=== PATIENT | female | born 1945 | race Caucasian/White ===

== ENCOUNTER 2020-07-16 12:56 | Emergency (ER) | payer MEDICARE, OTHER, SELFPAY ==
--- NOTE | ~2020-07-16 | CT_ITS ---
EXAMINATION: CT HEAD WITHOUT CONTRAST CLINICAL INFORMATION: Headache COMPARISON: None TECHNIQUE: Contiguous axial imaging was performed from the skull base to vertex without intravenous administration of contrast. This CT examination was performed using dose optimization techniques as appropriate, variously including the following: *Automated exposure control *Adjustment of mA and/or kV according to patient size (this includes techniques or standardized protocols for targeted exams where dose is matched to indication/reason for exam; i.e. extremities or head) *Use of iterative reconstruction technique DLP: 615 mGy-cm FINDINGS: There is no evidence of acute intracranial hemorrhage or territorial infarction. No abnormal mass effect or midline shift is seen. Jo to white matter differentiation is well preserved. No extra-axial fluid collections are identified. The ventricles are normal in size. There is no abnormal attenuation within the brain parenchyma. The osseous structures and soft tissues are normal. The mastoid air cells and visualized portions of the paranasal sinuses are well aerated. CT/CT head/brain wo con IMPRESSION: No acute intracranial pathology.
[2020-07-16 13:11] VITALS: BP 212/120; PULSE 72; RESP 18; TEMP 37.1; O2SAT 97; BMI 26.6
--- NOTE | 2020-07-16 13:59 | ECG_ITS ---
Test Reason : HYPERTENSION Blood Pressure : / mmHG Vent. Rate : 069 BPM Atrial Rate : 069 BPM P-R Int : 176 ms QRS Dur : 080 ms QT Int : 382 ms P-R-T Axes : 046 023 057 degrees QTc Int : 409 ms Sinus rhythm with Premature atrial complexes Otherwise normal ECG No previous ECGs available Referred By: Arin Arias Electronically Signed By:ANETA VILLATORO
--- NOTE | 2020-07-16 14:00 | ED.GENADULT ---
HPI - General Adult General Chief complaint: General Medical Stated complaint: HIGH BLOOD PRESSURE Time Seen by Provider: 07/16/20 13:58 Source: patient Mode of arrival: ambulatory Limitations: no limitations History of Present Illness HPI narrative: 75 y/o female with history of depression, hyperlipidemia, DM2 & HTN presenting to the ER with poorly controlled blood pressure. She reports her BP for the last 10 days at home has been ranging 170-200/70-100's. She saw her provider on 07/11 and she was changed from Clonidine (unknown dose) to diltiazem 120 ER in addition to her Losartan 100 mg daily and Metoprolol 25 mg daily. On 07/14 her blood pressure improved to 140/70's however it went back up to 200/100 today. She reports a mild intermittent headache. She denies chest pain, vision changes, dizziness. She has a strong family history of brain aneurysms so she came to the ER for evaluation. She reports compliance with all of her medications and presents today with a listing of meds and BP & HR readings. MD complaint: high blood pressure Onset (ago): week(s) (2) Location: head Radiation: non-radiation Severity: mild Quality: aching Pain Consistency: intermittent Relieving factors: none Exacerbating factors: none Associated symptoms: headaches Treatments prior to arrival: none Related Data Previous Rx's Medication Instructions Recorded amlodipine 10 mg PO DAILY #14 tab 07/16/20 Allergies Allergy/AdvReac Type Severity Reaction Status Date / Time ampicillin Allergy Unknown Verified 07/16/20 13:26 lisinopril Allergy Rash Verified 07/16/20 13:26 Review of Systems Review of Systems: Constitutional: No Fever, No Chills ENT/Mouth: No sore throat, No Rhinorrhea, No Swallowing Difficulty Eyes: No Eye Pain, No Swelling, No Redness Cardiovascular: No Chest Pain, No SOB, No Orthopnea, No Edema Respiratory: No Cough, No Sputum, No Wheezing, No dyspnea Gastrointestinal: No Nausea, No Vomiting, No Diarrhea, No abdominal Pain, No Hematochezia, No Melena Genitourinary: No Dysuria, No Urinary Frequency, No Hematuria Musculoskeletal: No joint pain, No Myalgias Skin: No Skin Lesions, No rash Neuro: No Weakness, No Numbness, No Dizziness, + Headache Psych: No Anxiety/Panic, No Depression Heme/Lymph: No Bruising, No Lymphadenopathy Endocrine: No Polyuria, No Polydipsia [facility] Past Medical History Medical History (Updated 07/16/20 @ 15:59 by AMA Dozier) Diabetes High cholesterol HTN (hypertension) Shingles Social History Social History Alcohol intake: never Smoking Status: Never smoker Use of substances other than those prescribed or required for medical reasons: No Advance Directives: No Advance Directives Information Provided: No Physical Exam Vital Signs: Vital Signs: Last Vital Signs Temp 98.7 F 07/16/20 13:11 Pulse 64 07/16/20 16:18 Resp 20 07/16/20 16:18 BP 174/70 H 07/16/20 16:18 Pulse Ox 97 07/16/20 16:18 Body Mass Index 26.6 Appearance: Alert. Oriented X3. No acute distress. Eyes: Pupils equal, round and reactive to light. ENT: Pharynx normal. Neck: Normal inspection. Neck supple. CVS: Normal heart rate and rhythm. Pulses normal. Respiratory: No respiratory distress. Breath sounds normal. Abdomen: Soft and nontender. +BS x4 Skin: Skin warm and dry. Normal skin color. Normal skin turgor. No rashes. Extremities: No lower extremity edema. Neuro: Oriented X 3. No motor deficit. No sensory deficit. Steady gait Course Course Course Narrative: 75 y/o female presenting with poorly controlled BP despite medication changes by her doctor. She has mild headache with BP 200/100 on arrival. Doubt ICH but will get CT head to r/o. Will get EKG and metabolic workup. She appears well and asymptomatic from her severely elevated BP. Reevaluation(s) Reevaluation #1: Lab workup is unremarkable. Her BP improved 180's/70's after dose of amlodipine 5mg. Reevaluation #2: BP 170/70's. She has been counseled on the importance of following up with her provider tomorrow. Will plan to STOP her diltiazem and start amlodipine 10 mg daily. She was on this in the past and tolerated it well. Medical Decision Making Lab Data Result diagrams: 07/16/20 14:29 07/16/20 14:29 Labs: Lab Results 07/16/20 07/16/20 07/16/20 Range/Units 14:29 14:29 14:29 WBC 5.4 (4.8-10.8) X10*3/uL RBC 4.54 (4.20-5.50) X10*6/uL Hgb 11.7 L (12.0-16.0) g/dl Hct 36.2 L (37-47) % MCV 79.7 L (80-98) fL MCH 25.8 L (27.0-33.0) pg MCHC 32.3 (31.0-35.0) g/dl RDW 15.0 (11.0-16.0) % Plt Count 214 (160-400) X10*3/uL MPV 10.1 (9.4-12.3) fL Immature Gran % (Auto) 0.4 (0.0-0.4) % Neut % (Auto) 71.7 (45-73) % Lymph % (Auto) 18.1 L (20-40) % [place] % (Auto) 9.4 (2-11) % Eos % (Auto) 0.0 (0-4) % Baso % (Auto) 0.4 (0-2) % Lymph # (Auto) 1.0 L (1.2-4.9) X10*3/uL [place] # (Auto) 0.5 (0.1-1.2) X10*3/uL Eos # (Auto) 0.0 (0.0-0.4) X10*3/uL Baso # (Auto) 0.0 (0.0-0.2) X10*3/uL Abs Immat Gran (auto) 0.02 (0.00-0.03) X10*3/uL Absolute Neuts (auto) 3.9 (2.0-8.3) X10*3/uL Absolute Nucleated RBC 0.000 (0.0-0.012) X10*3/uL Nucleated RBC % (auto) 0.0 (0.0-0.2) /100WBC Hold Blue Top SEE NOTE Sodium 135 (135-145) mmol/L Potassium 3.9 (3.3-5.1) mmol/L Chloride 99 (96-108) mmol/L Carbon Dioxide 24 (22-29) mmol/L Anion Gap 16 (12-20) BUN 12 (9-16) mg/dL Creatinine 0.96 (0.5-1.4) mg/dL Estim Creat Clear Calc 45.8 Estimated GFR 57 Random Glucose 218 H (60-115) mg/dL Calcium 9.4 (8.4-10.2) mg/dL Magnesium 1.8 (1.6-2.6) mg/dL Total Bilirubin 0.4 (0.0-1.0) mg/dL Direct Bilirubin 0.3 (0.0-0.5) mg/dL AST 12 (5-31) U/L ALT 10 (0-31) U/L Alkaline Phosphatase 87 (39-117) U/L Troponin I High Sens (<3.5-17.0) ng/L Total Protein 7.3 (6.5-8.0) g/dL Albumin 4.3 (3.5-5.0) g/dL Urine Color Urine Appearance Urine pH (5.0-8.0) Ur Specific [place] (1.005-1.025) Urine Protein (NEG-TRACE) MG/DL Urine Glucose (UA) (NEG) MG/DL Urine Ketones (NEG) MG/DL Urine Blood (NEG) Urine Nitrite (NEG) Ur Leukocyte Esterase (NEG) Urine RBC (0) /HPF Urine WBC (0-4) /HPF Ur Squamous Epith Cells /LPF Urine Bacteria /LPF 07/16/20 07/16/20 Range/Units 14:29 15:13 WBC (4.8-10.8) X10*3/uL RBC (4.20-5.50) X10*6/uL Hgb (12.0-16.0) g/dl Hct (37-47) % MCV (80-98) fL MCH (27.0-33.0) pg MCHC (31.0-35.0) g/dl RDW (11.0-16.0) % Plt Count (160-400) X10*3/uL MPV (9.4-12.3) fL Immature Gran % (Auto) (0.0-0.4) % Neut % (Auto) (45-73) % Lymph % (Auto) (20-40) % [place] % (Auto) (2-11) % Eos % (Auto) (0-4) % Baso % (Auto) (0-2) % Lymph # (Auto) (1.2-4.9) X10*3/uL [place] # (Auto) (0.1-1.2) X10*3/uL Eos # (Auto) (0.0-0.4) X10*3/uL Baso # (Auto) (0.0-0.2) X10*3/uL Abs Immat Gran (auto) (0.00-0.03) X10*3/uL Absolute Neuts (auto) (2.0-8.3) X10*3/uL Absolute Nucleated RBC (0.0-0.012) X10*3/uL Nucleated RBC % (auto) (0.0-0.2) /100WBC Hold Blue Top Sodium (135-145) mmol/L Potassium (3.3-5.1) mmol/L Chloride (96-108) mmol/L Carbon Dioxide (22-29) mmol/L Anion Gap (12-20) BUN (9-16) mg/dL Creatinine (0.5-1.4) mg/dL Estim Creat Clear Calc Estimated GFR Random Glucose (60-115) mg/dL Calcium (8.4-10.2) mg/dL Magnesium (1.6-2.6) mg/dL Total Bilirubin (0.0-1.0) mg/dL Direct Bilirubin (0.0-0.5) mg/dL AST (5-31) U/L ALT (0-31) U/L Alkaline Phosphatase (39-117) U/L Troponin I High Sens 5.4 (<3.5-17.0) ng/L Total Protein (6.5-8.0) g/dL Albumin (3.5-5.0) g/dL Urine Color YELLOW Urine Appearance CLEAR Urine pH 7.0 (5.0-8.0) Ur Specific [place] 1.015 (1.005-1.025) Urine Protein NEG (NEG-TRACE) MG/DL Urine Glucose (UA) 100 H (NEG) MG/DL Urine Ketones NEG (NEG) MG/DL Urine Blood NEG (NEG) Urine Nitrite NEG (NEG) Ur Leukocyte Esterase TRACE H (NEG) Urine RBC 0-2 (0) /HPF Urine WBC 5-9 H (0-4) /HPF Ur Squamous Epith Cells 1+ /LPF Urine Bacteria 2+ /LPF ECG Data Attestation: I personally reviewed and interpreted this ECG as follows: Interpretation: normal sinus rhythm, HR 69 bpm, normal MD interval, noraml QTc, no ST segment elevations, artifact present. Discharge Plan Discharge Clinical Impression: Poorly-controlled hypertension Patient Disposition: Home, Self-Care Instructions: Low-Sodium Diet (ED), Hypertensive Crisis (ED), Hypertension and Diabetes (ED) Additional Instructions: Your workup in the ER today was unremarkable. Recommend following up with your doctor tomorrow for further management of your blood pressure medications. Recommend STOP taking diltiazem medication. This medication can lower your heart rate, and yours has been borderline low according to your records. Recommend START taking amlodipine 10 mg daily. You were given this in the ER with improvement in your blood pressure. Two weeks worth has been sent to your pharmacy. Recommend monitoring your blood pressure 2 hours after taking your medications. If you develop chest pain, severe headache, vision changes or any other concerning symptom come back to the ER for further evaluation. Prescriptions: New amlodipine 10 mg tablet 10 mg PO DAILY Qty: 14 RF: 0
[2020-07-16 14:34] LABS: MANUAL DIFF FLAG NO
[2020-07-16 14:35] LABS: Basophils Percent Auto 0.4 % (0-2); Hematocrit 36.2 % (37-47); Hemoglobin 11.7 g/dl (12.0-16.0); Imm Gran Abs Auto 0.02 X10*3/uL (0.00-0.03); Imm Gran Pct Auto 0.4 % (0.0-0.4); Lymphocytes Percent Auto 18.1 % (20-40); Mean Corpuscular HGB Conc 32.3 g/dl (31.0-35.0); Mean Corpuscular Hemoglobin 25.8 pg (27.0-33.0); Mean Corpuscular Volume 79.7 fL (80-98); Mean Platelet Volume 10.1 fL (9.4-12.3); Monocytes Absolute Auto 0.5 X10*3/uL (0.1-1.2); Monocytes Percent Auto 9.4 % (2-11); Neutrophils Absolute Auto 3.9 X10*3/uL (2.0-8.3); Neutrophils Percent Auto 71.7 % (45-73); Platelet Count 214 X10*3/uL (160-400); Red Blood Count 4.54 X10*6/uL (4.20-5.50); White Blood Count 5.4 X10*3/uL (4.8-10.8)
[2020-07-16 14:51] VITALS: BP 192/77; PULSE 70
[2020-07-16] MEDS: amLODIPine Besylate 5 MG TABLET PO (14:51)
[2020-07-16 14:54] LABS: Alanine Aminotransferase 10 U/L (0-31); Albumin Level 4.3 g/dL (3.5-5.0); Alkaline Phosphatase 87 U/L (39-117); Anion Gap 16 (12-20); Aspartate Amino Transferase 12 U/L (5-31); Bilirubin Direct 0.3 mg/dL (0.0-0.5); Bilirubin Total 0.4 mg/dL (0.0-1.0); Blood Urea Nitrogen 12 mg/dL (9-16); Calcium 9.4 mg/dL (8.4-10.2); Carbon Dioxide 24 mmol/L (22-29); Chloride 99 mmol/L (96-108); Creatinine Clr Calc Pharmacy 45.8; Estimated Glomerular Filt Rate 57; Glucose Random 218 mg/dL (60-115); Magnesium 1.8 mg/dL (1.6-2.6); Potassium 3.9 mmol/L (3.3-5.1); Sodium 135 mmol/L (135-145); Total Protein 7.3 g/dL (6.5-8.0)
[2020-07-16 15:00] LABS: Troponin-I High Sensitivity 5.4 ng/L (<3.5-17.0)
[2020-07-16 15:11] VITALS: BP 199/72; PULSE 63; RESP 17; O2SAT 96
[2020-07-16 15:23] LABS: Glucose Urine UA 100 MG/DL (NEG); Leukocyte Esterase Urine TRACE (NEG); Nitrite Urine NEG (NEG); Specific Gravity - Urine 1.015 (1.005-1.025); UACC Culture Trigger YES; Urine Blood NEG (NEG); Urine Ketones NEG (NEG); Urine Protein NEG (NEG-TRACE)
[2020-07-16 15:28] LABS: Appearance Urine CLEAR; Color Urine YELLOW
[2020-07-16] MEDS: Acetaminophen 325 MG TABLET 975 MG PO (15:35)
[2020-07-16 15:37] VITALS: BP 186/71; PULSE 64
[2020-07-16 15:37] LABS: Bacteria Urine 2+ /LPF; RBC Urine 0-2 /HPF (0); Squamous Epithelial Cell Urine 1+ /LPF
[2020-07-16 16:18] VITALS: BP 174/70; PULSE 64; RESP 20; O2SAT 97
[2020-07-16 16:25] VITALS: BP 172/72
== END 2020-07-16 16:54 | disposition home or self-care (01) ==
PROVIDERS: Physician Assistant; Emergency Provider Emergency Medicine; PCP Family Medicine
DX: I10 Essential (primary) hypertension (principal); E11.9 Type 2 diabetes mellitus without complications
CPT/HCPCS: 36415; 70450; 80048; 80076; 81001; 81003; 83735; 84484; 85025; 87086; 87088; 87186; 93005; 99284

== ENCOUNTER 2022-01-12 11:01 | Emergency (ER) | payer MEDICARE, OTHER, SELFPAY ==
--- NOTE | ~2022-01-12 | CT_ITS ---
EXAMINATION: CT FACIAL BONES WITHOUT CONTRAST CLINICAL INFORMATION: Fall, head injury COMPARISON: None TECHNIQUE: Axial Imaging with coronal and sagittal reformatted images This CT examination was performed using dose optimization techniques as appropriate, variously including the following: *Automated exposure control *Adjustment of mA and/or kV according to patient size (this includes techniques or standardized protocols for targeted exams where dose is matched to indication/reason for exam; i.e. extremities or head) *Use of iterative reconstruction technique DLP: 260 mGy-cm FINDINGS: No fracture is seen. CT/CT facial bones wo IV con IMPRESSION: No facial fracture is seen.
--- NOTE | ~2022-01-12 | XR_ITS ---
EXAMINATION: XR FACIAL BONES CLINICAL INFORMATION: Pain EXAMINATION: Facial bones. 5 views are submitted. There is no air-fluid level seen here. The visualized sinuses are grossly clear. No convincing evidence of significant sinus disease. There is no evidence for fracture on the imaging submitted. XR/XR facial bones min 3V IMPRESSION: No fracture is seen here. Sinuses are felt to be grossly clear.
--- NOTE | ~2022-01-12 | CT_ITS ---
Indication: Fall injury EXAMINATION: Cervical spine and brain. Axial imaging with coronal and sagittal reformatted images. Comparison previous dated 07/16/2021. This CT examination was performed using dose optimization techniques as appropriate, variously including the following: *Automated exposure control *Adjustment of mA and/or kV according to patient size (this includes techniques or standardized protocols for targeted exams where dose is matched to indication/reason for exam; i.e. extremities or head) *Use of iterative reconstruction technique. Radiation dose [address] cervical spine; No acute fracture or dislocation. Degenerative changes are noted. CT brain; There is no midline shift. There is no mass effect. There is no hemorrhage. The basal cisterns appear patent. The posterior fossa is grossly within normal limits. There is no extra-axial collection. The arenas-white matter differentiation is maintained. Probable scattered white matter ischemic changes are noted. There is no fracture on the bone windows. A basilar tip aneurysm would need to be considered. This may measure [address]/CT cervical spine wo IV con IMPRESSION: No acute finding in the cervical spine or brain. Must consider basilar tip aneurysm on the imaging submitted. Appears similar to previous in 07/16/2020 study. Recommend CTA for full evaluation
--- NOTE | ~2022-01-12 | XR_ITS ---
EXAMINATION: XR ANKLE, RIGHT CLINICAL INFORMATION: Fall COMPARISON: None TECHNIQUE: AP, lateral, and mortise views of the right ankle. FINDINGS: Transverse fracture of the lateral malleolus. Mildly distracted. The mortise is grossly intact. XR/XR ankle RT min 3V IMPRESSION: Transverse fracture of the lateral malleolus.
--- NOTE | ~2022-01-12 | CT_ITS ---
Indication: Fall injury EXAMINATION: Cervical spine and brain. Axial imaging with coronal and sagittal reformatted images. Comparison previous dated 07/16/2021. This CT examination was performed using dose optimization techniques as appropriate, variously including the following: *Automated exposure control *Adjustment of mA and/or kV according to patient size (this includes techniques or standardized protocols for targeted exams where dose is matched to indication/reason for exam; i.e. extremities or head) *Use of iterative reconstruction technique. Radiation dose [address] cervical spine; No acute fracture or dislocation. Degenerative changes are noted. CT brain; There is no midline shift. There is no mass effect. There is no hemorrhage. The basal cisterns appear patent. The posterior fossa is grossly within normal limits. There is no extra-axial collection. The arenas-white matter differentiation is maintained. Probable scattered white matter ischemic changes are noted. There is no fracture on the bone windows. A basilar tip aneurysm would need to be considered. This may measure [address] head/brain wo IV con IMPRESSION: No acute finding in the cervical spine or brain. Must consider basilar tip aneurysm on the imaging submitted. Appears similar to previous in 07/16/2020 study. Recommend CTA for full evaluation
[2022-01-12 11:28] VITALS: BP 221/95; PULSE 86; RESP 16; TEMP 36.7; O2SAT 97; BMI 25.0
--- NOTE | 2022-01-12 13:53 | ED_ITS ---
HPI - Fall General Chief Complaint: Fall Stated Complaint: fall off stairs head facial ankle inj yesterday Time Seen by Provider: 01/12/22 13:20 Source: patient and family ( at bedside) Mode of arrival: ambulatory Limitations: no limitations History of Present Illness HPI Narrative: 77-year-old female with a past medical history of depression, hyperlipidemia, diabetes type 2 and hypertension presenting to the ER with complaints of facial injury and right ankle pain/swelling after she had a mechanical fall yesterday. She reports that she was about to leave her house and she tripped and fell on the front door steps going face forward down 3 steps. She denies loss of consciousness or prolonged down time. She denies any symptoms prior to the fall. She reports only facial pain and right ankle pain/swelling after the fall. She denies any dizziness, headaches, neck pain/stiffness/injury, changes in vision, epistaxis, ear pain/drainage, sore throat, throat pain, chest pain, any other extremity pain, abdominal pain or any other symptoms complaints or concerns at this time. MD complaint: fall Onset (ago): day(s) (Yesterday) Fall from: down stairs (#) (3) Fall witnessed: yes, by family () Place fall occurred: home (Outdoor front steps) Loss of consciousness: none Prolonged down time: no Symptoms prior to fall: none Context: tripped/slipped Location of injury: head and face Location of injury - extremities: right: ankle Severity: moderate Quality: aching Associated symptoms (after fall): denies Related Data Previous Rx's Medication Instructions Recorded amlodipine 10 mg tablet 10 mg PO DAILY #14 tabs 07/16/20 acetaminophen 500 mg tablet 1,000 mg PO QID PRN fever or pain 01/12/22 (Tylenol Extra Strength) #14 tabs tramadol 50 mg tablet 50 mg PO Q8H PRN pain #14 tabs 01/12/22 Allergies Allergy/AdvReac Type Severity Reaction Status Date / Time ampicillin Allergy Unknown Verified 07/16/20 13:26 lisinopril Allergy Rash Verified 07/16/20 13:26 Review of Systems Review of Systems: Constitutional : No Weight loss, No Fever, No Chills, No Night Sweats, No Fatigue, No Malaise ENT/Mouth : No Hearing loss, No Ear Pain, No Nasal Congestion, No Sinus Pain, No Hoarseness, No sore throat, No Rhinorrhea, No Swallowing Difficulty Eyes: No Eye Pain, No Swelling, No Redness, No Foreign Body, No Discharge, No Vision Changes Cardiovascular : No Chest Pain, No SOB, No Dyspnea on Exertion, No Orthopnea, No Edema, No Palpitations Respiratory : No Cough, No Sputum, No Wheezing, No Smoke Exposure, No Dyspnea Gastrointestinal : No Nausea, No Vomiting, No Diarrhea, No Constipation, No abdominal Pain, No Hematochezia, No Melena Genitourinary : no irregular bleeding, No Dysuria, No Urinary Frequency, No Hematuria, No Urinary Incontinence, No Urgency, No Flank Pain, No Urinary Flow Changes, No Hesitancy Musculoskeletal : + right ankle joint pain and facial pain, No Myalgias, No Joint Swelling Skin : No Skin Lesions, No rash Neuro : No Weakness, No Numbness, No Paresthesias, No Loss of Consciousness, No Dizziness, No Headache Psych : No Anxiety/Panic, No Depression, No SI/HI/AH/VH, No Social Issues, Heme/Lymph: No Bruising, No Bleeding,No Lymphadenopathy Endocrine : No Polyuria, No Polydipsia, No Temperature Intolerance Yes all other systems are reviewed and are negative [facility] Past Medical History Attestation statement: The following information was validated with the patient. Source: old records reviewed, obtained from family and nursing notes reviewed Medical History Diabetes High cholesterol HTN (hypertension) Shingles Social History Social History Alcohol intake: never Advance Directives: No Advance Directives Information Provided: Yes Physical Exam Vital Signs: Vital Signs: Last Vital Signs Temp 98.1 F 01/12/22 11:28 Pulse 86 01/12/22 11:28 Resp 16 01/12/22 11:28 BP 221/95 H 01/12/22 11:28 Pulse Ox 97 01/12/22 11:28 O2 Del Method 01/12/22 11:28 BMI result Body Mass Index 25.0 vital signs have been reviewed as normal and appeared to be correct. Blood pressure normal. Heart rate normal. Respiration rate normal. Temperature normal. Oxygen saturation normal. Appearance: Alert. Oriented X3. No acute distress. Head: Normal external exam. Normocephalic. Atraumatic. No Reynolds signs noted. No raccoon eyes noted Eyes: PERRLA. EOMI. Conjunctiva and sclera normal. Eyelids normal. ENT: EAC normal. TM's Normal. No septal hematoma noted. No hemotympanum noted. Pharynx normal. Uvula midline. Moist mucous membranes. No lesions/ulcerations or masses noted on the tongue. Normal voice. No trismus noted. No drooling noted. No muffled voice noted. Neck: Normal inspection. Neck supple. FROM. No adenopathy. Thyroid Normal. No tracheal deviation noted. No crepitus is noted. No meningeal signs. No neck mass noted. No signs of trauma noted. CVS: Normal heart rate and rhythm. Heart sound normal. Pulses normal throughout. No murmurs/rales/gallops. Respiratory: No respiratory distress. Painless inspiration. Breath sounds normal. No wheezes/rales/rhonchi noted. Chest nontender. No crepitus is noted. No accessory muscle usage noted or decreased air movement noted. No signs of trauma. Abdomen: Soft and nontender. Nondistended. No guarding. No rigidity. Bowel sounds normal in all 4 quadrants. No distention noted. No organomegaly noted. No visible injury noted. No rebound tenderness. Negative Rovsing sign. Negative obturator's sign. Negative psoas sign. Negative Kennedy sign. Back: No CVA tenderness. Full range of motion noted. Nontender. No signs of trauma. Patient neuro intact bilaterally and distally on all 4 extremities. Patient's reflexes intact bilaterally and distally on all 4 extremities. No rashes/lesion/induration/fluctuance or signs of infection noted. Skin: Skin warm and dry. Normal skin color. Normal skin turgor. No rashes/lesions/lacerations noted. Extremities: No lower extremity edema. No calf tenderness is noted. Patient moderate soft tissue swelling and ecchymosis and tenderness palpation to the right lateral malleolus. No obvious ligamentous or tendon injury noted. No obvious deformities. She has full range of motion of the right ankle joint. No 5th metatarsal tenderness noted. No foot tenderness noted. Achilles tendon is intact not ruptured. Otherwise all other Extremities exhibit normal range of motion and nontender. Neuro: Oriented X 3. No motor deficit. No sensory deficit. Reflexes normal. Normal steady gait. No focal neuro deficits noted. CN's II-XII intact bilaterally? Vascular: + radial pulses/+ 2 distal pedal pulses/+2 dorsalis pedis b/l. Normal cap refill. No cyanosis noted to upper extremity nails and lower extremity toes nails. Course Course Course Narrative: 13:20pm - 77-year-old female with a past medical history of depression, hyperlipidemia, diabetes type 2 and hypertension presenting to the ER with complaints of facial injury and right ankle pain/swelling after she had a mechanical fall yesterday. She reports that she was about to leave her house and she tripped and fell on the front door steps going face forward down 3 steps. She denies loss of consciousness or prolonged down time. She denies any symptoms prior to the fall. She reports only facial pain and right ankle pain/swelling after the fall. Plan: CT scan of brain/cervical spine/facial bones without contrast, x-ray of right ankle and re-evaluate. Patient reports she does not need anything for pain at this time. Reevaluation(s) Reevaluation #1: - CT scan of brain/cervical spine/facial bones revealed chronic changes such as possible by basilar tip aneurysm appears similar to this previous study in 07/16/2020. Recommending CTA for for evaluation. Although this can be done as outpatient basis that is similar when compared to 2020. Patient noted to have right lateral malleolus fracture. I spoke to Orthopedics patient can be placed in an ortho boot. Will DC home with symptomatic treatment instructions return if any new or worsening symptoms follow-up with orthopedics and PCP. Patient has been at bedside understand agree this plan. Time: 14:56 Procedures Orthopedic Splinting/Casting Injury #1: Side: right Lower Extremity Injury Location: ankle and foot Lower Extremity Immobilizer: boot orthosis MDM - Fall Medical Records Attestation: I reviewed the patient's medical records. Imaging Data CT scan of brain/cervical spine/facial bones without contrast.: Attestation: I personally reviewed and interpreted this imaging study as follows: Radiologist's impression: CT cervical spine; No acute fracture or dislocation. Degenerative changes are noted. CT brain; There is no midline shift. There is no mass effect. There is no hemorrhage. The basal cisterns appear patent. The posterior fossa is grossly within normal limits. There is no extra-axial collection. The arenas-white matter differentiation is maintained. Probable scattered white matter ischemic changes are noted. There is no fracture on the bone windows. A basilar tip aneurysm would need to be considered. This may measure [address]/CT cervical spine wo IV con IMPRESSION: No acute finding in the cervical spine or brain. ? Must consider basilar tip aneurysm on the imaging submitted. Appears similar to previous in 07/16/2020 study. Recommend CTA for full evaluation Right ankle x-ray: Attestation: I personally reviewed and interpreted this imaging study as follows: Radiologist's impression: FINDINGS: Transverse fracture of the lateral malleolus. Mildly distracted. The mortise is grossly intact.? XR/XR ankle RT min 3V IMPRESSION: Transverse fracture of the lateral malleolus. Discharge Plan Discharge Clinical Impression: Fall, Ankle fracture, lateral malleolus, closed, Bruise of face, Basilar artery aneurysm Patient Disposition: Home, Self-Care Instructions: Ankle Fracture (ED) Additional Instructions: It appears you have aneurysm in your brain you should have this further evaluated by her primary care provider you will most likely need a CT scan of your arteries that require IV contrast. Return if any new or worsening symptoms. Follow up with her primary care provider. Prescriptions: New acetaminophen [Tylenol Extra Strength] 500 mg tablet 1,000 mg PO QID PRN (Reason: fever or pain) Qty: 14 0RF tramadol 50 mg tablet 50 mg PO Q8H PRN (Reason: pain) Qty: 14 0RF Rx Instructions: May partially fill upon patient request No Action amlodipine 10 mg tablet 10 mg PO DAILY Qty: 14 0RF Referrals: [facility] – [place] [facility] [Provider Group] (Call this week to make a follow-up appointment within the next few weeks) Print Language: Armenian
== END 2022-01-12 15:47 | disposition home or self-care (01) ==
PROVIDERS: Emergency Provider Internal Medicine
DX: S82.61XA Displaced fracture of lateral malleolus of right fibula, initial encounter for closed fracture (principal); S00.83XA Contusion of other part of head, initial encounter; W10.8XXA Fall (on) (from) other stairs and steps, initial encounter; I72.5 Aneurysm of other precerebral arteries; E11.9 Type 2 diabetes mellitus without complications; I10 Essential (primary) hypertension; E78.00 Pure hypercholesterolemia, unspecified; Y93.89 Activity, other specified; Y92.018 Other place in single-family (private) house as the place of occurrence of the external cause; Y99.9 Unspecified external cause status; Z79.899 Other long term (current) drug therapy
CPT/HCPCS: 70150; 70450; 70486; 72125; 73610; 99282; 99284

== ENCOUNTER 2022-01-29 07:47 | Outpatient (REF) | payer MEDICARE, OTHER, SELFPAY ==
--- NOTE | ~2022-01-29 | XR_ITS ---
EXAMINATION: XR ANKLE, RIGHT CLINICAL INFORMATION: Right ankle pain COMPARISON: Right ankle 01/12/2022 TECHNIQUE: AP, lateral, and mortise views of the right ankle. FINDINGS: There is undisplaced transverse fracture of the lateral malleolus with mild soft tissue swelling. No additional fracture seen. The ankle mortise and subtalar joints are normal. XR/XR ankle RT min 3V IMPRESSION: Nondisplaced transverse fracture of the lateral malleolus with mild soft tissue swelling. The soft tissue swelling is improved. No change in the fracture from last exam 01/12/2022.
== END 2022-01-29 07:48 | disposition home or self-care (01) ==
LOC: HO.HOSX 07:47
PROVIDERS: Visit Provider Physician Assistant
DX: S82.831A Other fracture of upper and lower end of right fibula, initial encounter for closed fracture (principal)
CPT/HCPCS: 73610; 99202

== ENCOUNTER 2022-02-26 | Outpatient (REF) | payer MEDICARE, OTHER, SELFPAY ==
--- NOTE | ~2022-02-26 | XR_ITS ---
EXAMINATION: XR ANKLE, RIGHT CLINICAL INFORMATION: Right ankle pain COMPARISON: Right ankle 01/29/2022 TECHNIQUE: AP, lateral, and mortise views of the right ankle. FINDINGS: There is there is a nondisplaced transverse fracture tip of lateral malleolus with mild soft tissue swelling. The ankle mortise and subtalar joints are normal. No other fracture seen. XR/XR ankle RT min 3V IMPRESSION: Nondisplaced transverse fracture tip of lateral malleolus with mild soft tissue swelling, stable.
== END 2022-02-26 00:01 | disposition home or self-care (01) ==
LOC: HO.HOSX
PROVIDERS: Visit Provider Physician Assistant
DX: S82.832A Other fracture of upper and lower end of left fibula, initial encounter for closed fracture (principal)
CPT/HCPCS: 73610; 99212

== ENCOUNTER 2023-12-18 10:37 | Outpatient (REF) | payer MEDICARE, OTHER, SELFPAY | END 2023-12-18 10:38 | disposition home or self-care (01) | LOC: HO.SH 10:37 | PROVIDERS: Visit Provider Nurse Practitioner Family | DX: Z01.118 Encounter for examination of ears and hearing with other abnormal findings (principal); H90.3 Sensorineural hearing loss, bilateral | CPT/HCPCS: 92557 ==